=== PATIENT | male | born 2000 | race Asian ===

== ENCOUNTER 2023-11-15 01:10 | Inpatient (IN) | payer BC ==
[~2023-11-15] VITALS: Ht 182.9 cm; Wt 63.0 kg
[2023-11-15 01:46] VITALS: BP_SYST 117; PULSE 89; RESP 16; TEMP 98.5; O2SAT 100
[2023-11-15] MEDS: NACL 0.9% 1,000 ML IV ONE ×2 (02:17→04:02)
[2023-11-15 02:33] LABS: BASOPHILS % (AUTO) 0.1 % (0.0-2.0); EOSINOPHILS % (AUTO) 0.4 % (0.0-4.0); HEMATOCRIT 41.8 % (36-54); HEMOGLOBIN 14.3 g/dL (14.0-18.0); LYMPHOCYTES # (AUTO) 0.4 K/uL (1.0-5.5); LYMPHOCYTES % (AUTO) 4.4 % (20.5-51.5); MEAN CORPUSCULAR HEMOGLOBIN 29 pg (27-31); MEAN CORPUSCULAR HGB CONC 34 % (32-36); MEAN CORPUSCULAR VOLUME 85 fL (79.0-98.0); MONOCYTES # (AUTO) 0.6 K/uL (0.0-1.0); MONOCYTES % (AUTO) 7.8 % (1.7-9.3); NEUTROPHILS # (AUTO) 7.2 K/uL (1.8-7.7); NEUTROPHILS % (AUTO) 87.3 % (40.0-70.0); PLATELET COUNT (AUTO) 152 K/uL (130-430); RED BLOOD CELL COUNT(AUTO) 4.91 MIL/uL (4.2-6.2); RED CELL DISTRIBUTION WIDTH 12.9 % (9.0-15.0); WHITE BLOOD COUNT (AUTO) 8.2 K/uL (4.8-10.8)
[2023-11-15 02:59] LABS: CALCIUM 8.2 mg/dL (8.4-11.0); CREATININE 0.94 mg/dL (0.55-1.30); POTASSIUM 3.5 mmol/L (3.5-5.1)
[2023-11-15] MEDS ORDERED: LR 1,000 ML IV ONE (04:45)
[2023-11-15] MEDS ORDERED: ONDANSETRON HCL 4 MG/2 ML VIAL IVP PRN (05:00)
[2023-11-15] MEDS ORDERED: LISD20TA PO (05:04)
[2023-11-15] MEDS ORDERED: SERT-131 PO (05:04)
[2023-11-15] MEDS ORDERED: TRAZ-250 PO (05:04)
[2023-11-15] MEDS: D5LR 1,000 ML IV SCH (05:19)
[2023-11-15 08:00] VITALS: BP_SYST 127; PULSE 86; RESP 20; TEMP 99; O2SAT 100; O2SAT 97
[2023-11-15 08:18] VITALS: BP_SYST 119; PULSE 90; RESP 18; TEMP 98; O2SAT 99
[2023-11-15] MEDS: metroNIDAZOLE 500 MG TABLET PO ONE (11:37)
[2023-11-15] MEDS: CIPROFLOXACIN HCL 500 MG TABLET PO ONE (11:37)
[2023-11-15] MEDS: ACETAMINOPHEN/CODEINE 300 MG-30 MG TABLET PO ONE (12:00)
[2023-11-15] MEDS ORDERED: NALOXONE HCL 0.4 MG/ML AMP (NARCAN) IVP PRN ×2 (12:00)
[2023-11-15 13:26] LABS: BILIRUBIN,URINE NEGATIVE (NEGATIVE); BLOOD, URINE NEGATIVE (NEGATIVE); CLARITY/URINE CLEAR (CLEAR); COLOR,URINE YELLOW (YELLOW); GLUCOSE,URINE NEGATIVE (NEGATIVE); KETONES,URINE NEGATIVE (NEGATIVE); LEUKOCYTE ESTERASE ,URINE NEGATIVE (NEGATIVE); NITRITE, URINE NEGATIVE (NEGATIVE); PROTEIN URINE NEGATIVE (NEGATIVE); UROBILINOGEN,URINE 0.2 (0.2-1.0)
[2023-11-15 16:00] VITALS: BP_SYST 116; PULSE 84; RESP 18; TEMP 98; O2SAT 98
[2023-11-15] MEDS ORDERED: ACETAMINOPHEN/CODEINE 300 MG-30 MG TABLET PO PRN (16:00)
[2023-11-15] MEDS: metroNIDAZOLE 500 MG TABLET PO SCH (16:58)
[2023-11-15 20:00] VITALS: BP_SYST 127; PULSE 85; RESP 18; TEMP 97.8; O2SAT 100; O2SAT 99
[2023-11-15] MEDS: CIPROFLOXACIN HCL 500 MG TABLET PO SCH (21:00)
[2023-11-15] MEDS: traZODone HCL 50 MG TABLET (DESYREL) PO SCH (21:00)
[2023-11-16 00:15] VITALS: BP_SYST 129; PULSE 67; RESP 18; TEMP 97.7; O2SAT 100
[2023-11-16 06:06] LABS: BASOPHILS % (AUTO) 0.1 % (0.0-2.0); HEMATOCRIT 37.9 % (36-54); HEMOGLOBIN 12.7 g/dL (14.0-18.0); LYMPHOCYTES # (AUTO) 0.3 K/uL (1.0-5.5); LYMPHOCYTES % (AUTO) 4.6 % (20.5-51.5); MEAN CORPUSCULAR HEMOGLOBIN 29 pg (27-31); MEAN CORPUSCULAR HGB CONC 34 % (32-36); MEAN CORPUSCULAR VOLUME 86 fL (79.0-98.0); MONOCYTES # (AUTO) 0.4 K/uL (0.0-1.0); MONOCYTES % (AUTO) 7.9 % (1.7-9.3); NEUTROPHILS # (AUTO) 4.8 K/uL (1.8-7.7); NEUTROPHILS % (AUTO) 87.4 % (40.0-70.0); PLATELET COUNT (AUTO) 141 K/uL (130-430); RED BLOOD CELL COUNT(AUTO) 4.39 MIL/uL (4.2-6.2); RED CELL DISTRIBUTION WIDTH 12.6 % (9.0-15.0); WHITE BLOOD COUNT (AUTO) 5.5 K/uL (4.8-10.8)
[2023-11-16 06:21] LABS: ALBUMIN 3.1 g/dL (3.4-4.8); CALCIUM 7.7 mg/dL (8.4-11.0); CREATININE 0.96 mg/dL (0.55-1.30); TOTAL BILIRUBIN 0.2 mg/dL (0.0-1.0); TOTAL PROTEIN, SERUM 6.2 g/dL (6.4-8.3)
[2023-11-16 08:00] VITALS: O2SAT 99
[2023-11-16 08:24] VITALS: BP_SYST 92; PULSE 92; RESP 18; TEMP 102; TEMP 98; O2SAT 99
[2023-11-16] MEDS: SERTRALINE HCL 50 MG TABLET PO SCH (08:39)
[2023-11-16] MEDS: ACETAMINOPHEN 650 MG/20.3 ML UDC PO PRN (08:39)
[2023-11-16] MEDS ORDERED: LISDEXAMFETAMINE DIMESYLATE 20 MG PO SCH (09:00)
[2023-11-16] MEDS: POTASSIUM CHLORIDE 20 MEQ/PKT PACKET PO ONE (12:49)
[2023-11-16] MEDS: metroNIDAZOLE 500 mg/NS 100 ML IV SCH (15:56)
[2023-11-16 16:42] VITALS: BP_SYST 108; PULSE 90; RESP 18; TEMP 98.2; O2SAT 99
[2023-11-16] MEDS: VANCOMYCIN HCL ORAL SOLUTION 125 MG/5 ML, 150 ML PO SCH (17:43)
[2023-11-16 20:00] VITALS: BP_SYST 125; PULSE 86; RESP 16; TEMP 97.5; O2SAT 98
[2023-11-16 20:39] VITALS: O2SAT 99
[2023-11-17 02:00] VITALS: BP_SYST 125; PULSE 82; RESP 18; TEMP 97.4; O2SAT 99
[2023-11-17 05:36] LABS: BASOPHILS % (AUTO) 0.1 % (0.0-2.0); HEMATOCRIT 38.2 % (36-54); HEMOGLOBIN 12.9 g/dL (14.0-18.0); LYMPHOCYTES # (AUTO) 0.5 K/uL (1.0-5.5); LYMPHOCYTES % (AUTO) 15.6 % (20.5-51.5); MEAN CORPUSCULAR HEMOGLOBIN 29 pg (27-31); MEAN CORPUSCULAR HGB CONC 34 % (32-36); MEAN CORPUSCULAR VOLUME 85 fL (79.0-98.0); MONOCYTES # (AUTO) 0.2 K/uL (0.0-1.0); MONOCYTES % (AUTO) 7.3 % (1.7-9.3); NEUTROPHILS # (AUTO) 2.3 K/uL (1.8-7.7); PLATELET COUNT (AUTO) 116 K/uL (130-430); RED BLOOD CELL COUNT(AUTO) 4.48 MIL/uL (4.2-6.2); RED CELL DISTRIBUTION WIDTH 12.8 % (9.0-15.0)
[2023-11-17 05:58] LABS: ALBUMIN 2.9 g/dL (3.4-4.8); CALCIUM 7.7 mg/dL (8.4-11.0); TOTAL BILIRUBIN 0.3 mg/dL (0.0-1.0); TOTAL PROTEIN, SERUM 5.9 g/dL (6.4-8.3)
[2023-11-17 06:38] LABS: POTASSIUM 2.8 mmol/L (3.5-5.1)
[2023-11-17 08:00] VITALS: BP_SYST 116; PULSE 66; RESP 16; TEMP 98.7; O2SAT 98
[2023-11-17] MEDS: POTASSIUM CHLORIDE 20 MEQ/PKT PACKET PO SCH (09:13)
[2023-11-17 12:00] VITALS: BP_SYST 111; PULSE 72; RESP 18; TEMP 97.1; O2SAT 99
[2023-11-17 16:00] VITALS: BP_SYST 113; PULSE 75; RESP 18; TEMP 97.9; O2SAT 98
[2023-11-17] MEDS: POTASSIUM CHLORIDE 20 MEQ TABLET.ER PO ONE (16:25)
[2023-11-17 20:15] VITALS: BP_SYST 121; PULSE 63; RESP 18; TEMP 97.8; O2SAT 98; O2SAT 99
[2023-11-17] MEDS ORDERED: LACTOBACILLUS RHAMNOSUS GG 1 CAP CAPSULE PO SCH (21:00)
[2023-11-17] MEDS: LACTOBACILLUS RHAMNOSUS GG 1 CAP CAPSULE PO SCH (21:51)
[2023-11-18] VITALS (7 sets, daily range): BP systolic 104–128; PULSE 64–78; RESP 16–17; TEMP 97–98.3; O2SAT 98–100
[2023-11-18 06:23] LABS: BASOPHILS % (AUTO) 0.4 % (0.0-2.0); EOSINOPHILS % (AUTO) 0.9 % (0.0-4.0); HEMATOCRIT 40.8 % (36-54); HEMOGLOBIN 13.9 g/dL (14.0-18.0); LYMPHOCYTES % (AUTO) 38.6 % (20.5-51.5); MEAN CORPUSCULAR HEMOGLOBIN 29 pg (27-31); MEAN CORPUSCULAR HGB CONC 34 % (32-36); MEAN CORPUSCULAR VOLUME 85 fL (79.0-98.0); MONOCYTES # (AUTO) 0.4 K/uL (0.0-1.0); MONOCYTES % (AUTO) 16.4 % (1.7-9.3); NEUTROPHILS # (AUTO) 1.1 K/uL (1.8-7.7); NEUTROPHILS % (AUTO) 43.7 % (40.0-70.0); PLATELET COUNT (AUTO) 116 K/uL (130-430); RED BLOOD CELL COUNT(AUTO) 4.78 MIL/uL (4.2-6.2); WHITE BLOOD COUNT (AUTO) 2.5 K/uL (4.8-10.8)
[2023-11-18 06:59] LABS: CALCIUM 7.8 mg/dL (8.4-11.0); CREATININE 0.76 mg/dL (0.55-1.30); PHOSPHORUS 2.3 mg/dL (2.7-4.5); POTASSIUM 3.5 mmol/L (3.5-5.1); TOTAL BILIRUBIN 0.2 mg/dL (0.0-1.0)
[2023-11-19 00:10] VITALS: BP_SYST 117; PULSE 67; RESP 16; TEMP 98.3; O2SAT 99
[2023-11-19 08:00] VITALS: BP_SYST 112; PULSE 74; RESP 18; TEMP 98; O2SAT 100; O2SAT 99
[2023-11-19 08:17] LABS: BASOPHILS % (AUTO) 0.3 % (0.0-2.0); EOSINOPHILS % (AUTO) 0.9 % (0.0-4.0); HEMATOCRIT 40.6 % (36-54); HEMOGLOBIN 13.8 g/dL (14.0-18.0); LYMPHOCYTES % (AUTO) 39.2 % (20.5-51.5); MEAN CORPUSCULAR HEMOGLOBIN 29 pg (27-31); MEAN CORPUSCULAR HGB CONC 34 % (32-36); MEAN CORPUSCULAR VOLUME 85 fL (79.0-98.0); MONOCYTES # (AUTO) 0.6 K/uL (0.0-1.0); MONOCYTES % (AUTO) 21.3 % (1.7-9.3); NEUTROPHILS % (AUTO) 38.3 % (40.0-70.0); PLATELET COUNT (AUTO) 111 K/uL (130-430); RED BLOOD CELL COUNT(AUTO) 4.78 MIL/uL (4.2-6.2); RED CELL DISTRIBUTION WIDTH 12.6 % (9.0-15.0); WHITE BLOOD COUNT (AUTO) 2.7 K/uL (4.8-10.8)
[2023-11-19 08:30] LABS: CALCIUM 7.7 mg/dL (8.4-11.0); CREATININE 0.85 mg/dL (0.55-1.30); POTASSIUM 3.4 mmol/L (3.5-5.1); TOTAL BILIRUBIN 0.3 mg/dL (0.0-1.0); TOTAL PROTEIN, SERUM 5.9 g/dL (6.4-8.3)
[2023-11-19 20:00] VITALS: BP_SYST 98; PULSE 71; RESP 18; TEMP 98.2; O2SAT 100
[2023-11-20] VITALS: BP_SYST 104; PULSE 64; RESP 17; TEMP 98.2; O2SAT 98
[2023-11-20 06:14] LABS: HEMATOCRIT 39.1 % (36-54); HEMOGLOBIN 13.4 g/dL (14.0-18.0); MEAN CORPUSCULAR HEMOGLOBIN 29 pg (27-31); MEAN CORPUSCULAR HGB CONC 34 % (32-36); MEAN CORPUSCULAR VOLUME 84 fL (79.0-98.0); PLATELET COUNT (AUTO) 120 K/uL (130-430); RED BLOOD CELL COUNT(AUTO) 4.65 MIL/uL (4.2-6.2); RED CELL DISTRIBUTION WIDTH 12.8 % (9.0-15.0); WHITE BLOOD COUNT (AUTO) 3.2 K/uL (4.8-10.8)
[2023-11-20 06:20] LABS: CREATININE 0.72 mg/dL (0.55-1.30); POTASSIUM 3.7 mmol/L (3.5-5.1)
[2023-11-20 08:00] VITALS: O2SAT 99
[2023-11-20 08:38] LABS: ATYPICAL LYMPHOCYTES % 3 % (0-0); BASOPHILS % (MANUAL) 0 % (0-2); EOSINOPHILS % (MANUAL) 2 % (0-7); LYMPHOCYTES % (MANUAL) 55 % (20-46); MONOCYTES % (MANUAL) 11 % (0-11); PLATELET ESTIMATE DECREASED (ADEQUATE)
[2023-11-20 09:47] VITALS: BP_SYST 118; PULSE 75; TEMP 98
[2023-11-20] MEDS ORDERED: VANC25SO PO (17:03)
[2023-11-20] MEDS ORDERED: LACT1CAP57 PO (17:03)
[2023-11-20 17:23] VITALS: BP_SYST 118; PULSE 75; RESP 18; TEMP 98; O2SAT 99
== END 2023-11-20 17:45 | disposition home or self-care (01) | DRG 372 ==
LOC: SED 01:10 → SMU 04:47
PROVIDERS: ADMIT Internal Medicine; ATTEND Internal Medicine
DX: A04.72 Enterocolitis due to Clostridium difficile, not specified as recurrent (principal); E44.1 Mild protein-calorie malnutrition; Z68.1 Body mass index [BMI] 19.9 or less, adult; F32.A Depression, unspecified; E87.6 Hypokalemia; D69.59 Other secondary thrombocytopenia; Z79.899 Other long term (current) drug therapy
CPT/HCPCS: 36415; 80048; 80053; 81001; 81003; 83605; 83735; 84100; 85007; 85025; 85027; 86308; 86665; 87040; 87045-TC; 87230; 89055; 96360; 99285; J3490